=== PATIENT | female | born 1990 | race Caucasian/White ===

== ENCOUNTER → 2017-08-14 15:44 | Outpatient (CLI) | payer OTHER, MEDICAID, SELFPAY ==
--- NOTE | 2017-08-14 15:46 | DI.US.S_ITS ---
PROCEDURE: US OB <= 14 WEEKS FETUS INDICATIONS: Initial OB US/Dating scan OUTSIDE/PRIOR DATING DATA: Last menstrual period (LMP): 06/07/17. LMP-based estimated date of delivery (JOI): 03/14/18. First dating scan (date and location): 08/14/17. Estimated date of delivery (JOI) from first dating scan: 03/14/18. TECHNIQUE: Real-time scanning was performed of the fetus and maternal pelvic organs, with image documentation. Endovaginal scanning was also performed to better visualize the fetus and maternal ovaries. COMPARISON: None. FINDINGS: Embryo: [place]-rump length measured 2.9 cm corresponding to 9 weeks 5 days. Heart rate measures 173 beats per minute. Measurement variability in dating: +/- 4 weeks by LMP, +/- 7 days by mean sac diameter (use before 6 weeks gestation if crown-rump length not able to be measured), +/- 5 days by crown-rump length (up to 8 weeks 6 days gestation), +/- 7 days by crown-rump length (up to 13 weeks 6 days gestation). Maternal organs: Ovaries within normal limits. Limited images through the kidneys demonstrate no hydronephrosis. IMPRESSION: 9 week 5 day single living IUP. Dictated by: Dominick Barajas RRA Interpreted: Megha Baltazar MD on 08/14/2017 at 16:46 Approved by: Megha Baltazar MD, PhD on 08/14/2017 at 18:16
== END ==
PROVIDERS: PCP Family Medicine; Visit Provider Family Medicine
DX: Z34.91 Encounter for supervision of normal pregnancy, unspecified, first trimester (principal); Z3A.09 9 weeks gestation of pregnancy
CPT/HCPCS: 76801; 76817

== ENCOUNTER → 2017-09-13 12:13 | Outpatient (CLI) | payer OTHER, MEDICAID, SELFPAY ==
[2017-09-13 13:43] LABS: Add Manual Diff / Slide Review NO; Basophils Percent Auto 0.5 % (0-2); Eosinophils Percent Auto 1.5 % (2-4); Hematocrit 34.1 % (36-46); Hemoglobin 11.7 g/dL (12.0-16.0); Lymphocytes Percent Auto 24.1 % (25-40); Mean Corpuscular HGB Conc 34.2 % (30-36); Mean Corpuscular Hemoglobin 29.8 PG (26-34); Mean Corpuscular Volume 87.4 fL (80-100); Monocytes Percent Auto 5.3 % (3-14); Neutrophils Absolute Auto 5600 /uL (3000-5900); Neutrophils Percent Auto 68.6 % (50-75); Platelet Count 219 X10^3/uL (150-400); Red Blood Cell Count 3.91 X10^6/uL (4.0-5.2); Red Cell Distribution Width 12.9 % (11.6-14.8); White Blood Cell Count 8.2 X10^3/uL (4.5-11.0)
[2017-09-13 16:08] LABS: Hepatitis B Surface Antigen NEGATIVE s/c (NEGATIVE); Rubella Antibody IgG 82.6 IU/mL (>15)
[2017-09-13 16:23] LABS: HIV 1 and 2 Antibody NEGATIVE (NEGATIVE); Hep C Virus Ab w/Reflex Quant NEGATIVE s/c (NEGATIVE)
[2017-09-15 14:13] LABS: HSV 2 IGG AB < 0.90 index (< 0.90)
[2017-09-18 14:39] LABS: Varicella IgG Antibody < 135.00
[2017-09-21 13:44] LABS: Rapid Plasma Reagin NON-REACTIVE
== END ==
PROVIDERS: PCP Family Medicine; Visit Provider Family Medicine
DX: Z34.91 Encounter for supervision of normal pregnancy, unspecified, first trimester (principal)
CPT/HCPCS: 36415; 80055; 86695; 86696; 86703; 86787; 86803; 86850; 86900; 86901; 87086

== ENCOUNTER → 2017-10-10 16:54 | Outpatient (CLI) | payer OTHER, MEDICAID, SELFPAY ==
[2017-10-16 16:19] LABS: AFP, Serum 39.8 ng/mL; Calc Gestational Age 17.9; Cigarette Smoker N; Donated Egg NOT GIVEN; Donor Egg Age NOT GIVEN; Estriol, Free 1.05 ng/mL; Inhibin A, Dimeric 204 pg/mL; Maternal Weight 202 lbs; Number of Fetuses 1; Previous Pregnancy Down Syndro NOT GIVEN; hCG, MoM 1.14; hCG, Serum 23.8 IU/mL
== END ==
PROVIDERS: PCP Family Medicine; Visit Provider Family Medicine
DX: Z3A.16 16 weeks gestation of pregnancy (principal)
CPT/HCPCS: 36415; 82105; 82677; 84702; 86336

== ENCOUNTER → 2017-11-06 07:59 | Outpatient (CLI) | payer OTHER, MEDICAID, SELFPAY ==
--- NOTE | 2017-11-06 08:01 | DI.US.S_ITS ---
PROCEDURE: US OB >= 14 WEEKS FETUS INDICATIONS: ANATOMY SCAN OUTSIDE/PRIOR DATING DATA: Last menstrual period (LMP): 06/07/17. LMP-based estimated date of delivery (JOI): 03/14/18. First dating scan (date and location): 08/14/17. Estimated date of delivery (JOI) from first dating scan: 03/14/18.. TECHNIQUE: Real-time scanning was performed of the fetus, with image documentation and biometric measurements. Endovaginal scanning: Breech COMPARISON: [facility], OB <= 14 WEEKS FETUS, 08/14/2017, 15:56. FINDINGS: General: A single living intrauterine gestation is present. Presentation: Breech Placenta: Placental position is posterior, without previa. Amniotic fluid index: 17.1 cm, normal range is 5-24 cm. heart rate: 149 beats per minute. Maternal cervical canal: 4.2 cm long. biometrics: Biparietal diameter: 22 weeks 2 days Head circumference: 22 weeks 3 days Abdominal circumference: 22 weeks 1 day Femur length: 22 weeks 1 day Estimated gestational age from initial scan: 21 weeks 5 days Composite gestational age from present scan: 22 weeks 2 days Estimated weight and percentile: 481 g; 68th percentile Measurement variability for biometric dating: +/- 7 days from 14 weeks to 15 weeks 6 days gestation, +/- 10 days from 16 weeks to 21 weeks 6 days gestation, +/- 2 weeks from 22 weeks to 27 weeks 6 days gestation, +/- 3 weeks for 28 weeks gestation or later. weight reference: 4500 g or EFW >90/95% is considered macrosomia or large for gestational age. EFW <10% is small for gestational age. EFW 5% or less is considered intra-uterine growth restriction. Anatomic survey: Neuro: Ventricles are non-dilated at less than 10 mm. Cisterna magna is normal at 3-11 mm. Cerebellum is normal in size and morphology. Nuchal skin fold: Normal at less than 6 mm between 14-21 weeks gestational age. Face: Nose and lips are normal and facial profile not well-seen. Spine: No evidence for spina bifida. Heart: 4-chambered heart is present, with normal ventricular outflow tracts. Diaphragm: Diaphragm is intact. Stomach: Left-sided stomach is present. Kidneys: No hydronephrosis. Normal is less than 5 mm in 2nd trimester, less than 7 mm in 3rd trimester. Cord: 3-vessel cord has orthotopic insertion. Bladder: Normal in size. Extremities: All 4 extremities identified. IMPRESSION: 1. Normal interval growth. 2. facial profile not well seen otherwise normal anatomic survey Dictated by: Dominick Barajas [facility] Interpreted: Megha Baltazar MD on 11/06/2017 at 9:48 Approved by: Megha Baltazar MD, PhD on 11/06/2017 at 13:20
== END ==
PROVIDERS: Visit Provider Family Medicine
DX: Z34.92 Encounter for supervision of normal pregnancy, unspecified, second trimester (principal); Z3A.22 22 weeks gestation of pregnancy
CPT/HCPCS: 76811

== ENCOUNTER → 2017-12-03 13:15 | Outpatient (CLI) | payer OTHER, MEDICAID, SELFPAY ==
--- NOTE | 2017-12-03 13:16 | DI.US.S_ITS ---
PROCEDURE: US OB LIMITED INDICATIONS: PROFILE OUTSIDE/PRIOR DATING DATA: Last menstrual period (LMP): 06/07/17. LMP-based estimated date of delivery (JOI): 03/14/18. First dating scan (date and location): 08/14/17. Estimated date of delivery (JOI) from first dating scan: 03/14/18. TECHNIQUE: Real-time scanning was performed of the fetus, with image documentation. Endovaginal scanning: No COMPARISON: [facility], OB <= 14 WEEKS FETUS, 08/14/2017, 15:56. [facility], OB >= 14 WEEKS FETUS, 11/06/2017, 8:03. FINDINGS: A single living intrauterine gestation is present. Presentation: Vertex. Placenta: Placental position is posterior, without previa. Amniotic fluid index: 16.8 cm, normal range is 5-24 cm. heart rate: 168 beats per minute. Maternal cervical canal: 4.0 cm long. Estimated gestational age from initial scan: 25 weeks 4 days. Normal appearance of the facial profile. IMPRESSION: Single living IUP redemonstrated and normal facial profile. Dictated by: Dominick Barajas [facility] Interpreted: Megha Baltazar MD on 12/03/2017 at 15:35 Approved by: Megha Baltazar MD, PhD on 12/03/2017 at 15:42
== END ==
PROVIDERS: Visit Provider Family Medicine
DX: Z36.86 Encounter for antenatal screening for cervical length (principal); Z3A.23 23 weeks gestation of pregnancy
CPT/HCPCS: 76815

== ENCOUNTER → 2018-02-15 14:31 | Outpatient (CLI) | payer OTHER, MEDICAID, SELFPAY ==
[2018-02-15 16:04] LABS: Hematocrit 31.5 % (36-46); Hemoglobin 10.5 g/dL (12.0-16.0)
[2018-02-15 17:15] LABS: GTT (PREG) 1 Hour PP 50gm Dose 129 mg/dL (76-139)
== END ==
PROVIDERS: PCP Family Medicine; Visit Provider Family Medicine
DX: Z34.93 Encounter for supervision of normal pregnancy, unspecified, third trimester (principal); Z3A.28 28 weeks gestation of pregnancy
CPT/HCPCS: 36415; 82950; 85014; 85018

== ENCOUNTER → 2018-02-18 13:23 | Outpatient (CLI) | payer OTHER, MEDICAID, SELFPAY ==
[2018-02-19 12:58] LABS: Strep Grp B PCR NEG for Grp B Strep
== END ==
PROVIDERS: PCP Family Medicine; Visit Provider Family Medicine
DX: Z34.93 Encounter for supervision of normal pregnancy, unspecified, third trimester (principal); Z3A.36 36 weeks gestation of pregnancy
CPT/HCPCS: 87653

== ENCOUNTER 2018-02-20 07:08 | Outpatient (CLI) | payer OTHER, MEDICAID, SELFPAY ==
--- NOTE | 2018-02-20 08:03 | PM.OBTRLD ---
Visit Information Visit Information Date of evaluation: 02/20/18 Primary OB Provider: Caroline Noble On-call OB Provider: Savanah Sierra Reason for Evaluation: Yes other Comments/Additional reasons for admission: Patient was brought in for 37 weeks breech presentation for version attempt. Ultrasound performed showed the baby was vertex presentation. [facility] Social History marital status: unmarried,living together number of children: 2 occupational status: employed Smoking Status: Never smoker alcohol intake: never substance use type: does not use Evaluation Evaluation Baseline heart rate: 130 Variability: Moderate (11-25) monitor accelerations: Present monitor decelerations: Absent Diagnosis, Plan/Disposition Final Diagnosis (1) Breech presentation: Current Visit: Yes Status: Acute (2) 36 to 37 weeks gestation of : Current Visit: Yes Status: Acute Plan/Disposition Plan: Patient at 36 and 6/ 7th weeks by dates who had been breech presentation arrived for version but was found to be vertex presentation. She was sent home to follow up at her routine OB appointment
--- NOTE | 2018-02-20 08:06 | P.TNLD_ITS ---
Visit Information Visit Information Date of evaluation: 02/20/18 Primary OB Provider: Caroline Noble On-call OB Provider: Savanah Sierra Reason for Evaluation: Yes other Comments/Additional reasons for admission: Patient was brought in for 37 weeks breech presentation for version attempt. Ultrasound performed showed the baby was vertex presentation. [facility] Social History marital status: unmarried,living together number of children: 2 occupational status: employed Smoking Status: Never smoker alcohol intake: never substance use type: does not use Evaluation Evaluation Baseline heart rate: 130 Variability: Moderate (11-25) monitor accelerations: Present monitor decelerations: Absent Diagnosis, Plan/Disposition Final Diagnosis (1) Breech presentation: Current Visit: Yes Status: Acute (2) 36 to 37 weeks gestation of : Current Visit: Yes Status: Acute Plan/Disposition Plan: Patient at 36 and 6/ 7th weeks by dates who had been breech presentation arrived for version but was found to be vertex presentation. She was sent home to follow up at her routine OB appointment
== END 2018-02-20 07:52 | disposition home or self-care (01) ==
LOC: LABOR 07:46 → OB 12:44
PROVIDERS: PCP Family Medicine; Visit Provider Specialist
DX: O32.1XX0 Maternal care for breech presentation, not applicable or unspecified (principal); Z3A.37 37 weeks gestation of pregnancy
CPT/HCPCS: 59025; 59050; 76815; G0378; G0379

== ENCOUNTER 2018-03-19 18:06 | Inpatient (IN) | payer OTHER, MEDICAID, SELFPAY ==
[2018-03-19 19:08] LABS: Add Manual Diff / Slide Review NO; Basophils Absolute Auto 100 /uL (0-100); Basophils Percent Auto 0.5 % (0-2); Eosinophils Absolute Auto 0 /uL (0-450); Eosinophils Percent Auto 0.2 % (2-4); Hematocrit 34.7 % (36-46); Hemoglobin 11.4 g/dL (12.0-16.0); Lymphocytes Absolute Auto 2300 /uL (1100-4500); Lymphocytes Percent Auto 18.7 % (25-40); Mean Corpuscular HGB Conc 32.9 % (30-36); Mean Corpuscular Hemoglobin 27.9 PG (26-34); Monocytes Absolute Auto 700 /uL (0-900); Monocytes Percent Auto 5.5 % (3-14); Neutrophils Absolute Auto 9300 /uL (1500-7000); Neutrophils Percent Auto 75.1 % (50-75); Platelet Count 269 X10^3/uL (150-400); Red Blood Cell Count 4.08 X10^6/uL (4.0-5.2); Red Cell Distribution Width 15.4 % (11.6-14.8); White Blood Cell Count 12.4 X10^3/uL (4.5-11.0)
[2018-03-19] MEDS: ACETAMINOPHEN 325 MG TABLET 650 MG PO (21:02)
[2018-03-19 21:04] VITALS: BP 131/80
[2018-03-20] MEDS: ZOLPIDEM 5 MG TABLET PO ×2 (01:42→22:41)
[2018-03-20] MEDS: ACETAMINOPHEN 325 MG TABLET 650 MG PO ×4 (01:42→22:40)
--- NOTE | 2018-03-20 08:31 | P.HPOB_ITS ---
OB HPI Date/Time Date of admission: 03/20/18 Date Patient Seen: 03/20/18 Time Patient Seen: 08:00 History of Present Condition Chief complaint: PRENANCY : 4 Para: 2 Estimated Date of Delivery: 03/14/18 Estimated Gestational Age (weeks): 40w6d Narrative: Amparo Phan is a 27 year old at 40+6 weeks gestation here for postdates induction. She arrived last night however induction was delayed. Cytotec given at 4:50 AM. RN concerned about position afer placing Cytotec. Bedside US this morning demonstrated transverse lie with the spine down and head on the right. Indications Indication for induction OB: post dates History of Present care: good care, initiated at week # (10), number of visits (13) and pounds weight gain (28) Dating criteria: LMP confirmed by 1st trimester US Ultrasounds: normal mid trimester US Obstetrical complications: none Medical complications: none Preadmission Labs Blood type: O (+) positive -: Antibody screen: negative, GBS status: negative, HBsAG: negative, HIV: negative, HSV 1: positive, HSV 2: negative and RPR/VDLR: negative -: Chlamydia screen: not detected and Gonorrhea screen: not detected -: Rubella: immune and Varicella: not immune HCAB: negative PAP: Abnormal Quad screen: Normal 1 hr GTT: 129 Prior (ies) History: 04/12/2012 16 weeks D&E +Down Syndrome 09/08/14 41 weeks female 7.10 lbs, thick meconium 06/20/16 40 weeks 8.15 male, thick meconium, nuchal cord Evaluation Evaluation Baseline heart rate: 130 Variability: Moderate (11-25) monitor accelerations: Present monitor decelerations: Absent Uterine Contraction Intensity: Mild Category of Tracing: I Cervical dilation (cm): 1 Cervical effacement (%): 25 station: -4 Laboratory results: Laboratory Tests 03/19/18 03/19/18 18:50 18:50 WBC 12.4 H RBC 4.08 Hgb 11.4 L Hct 34.7 L MCV 85.0 MCH 27.9 MCHC 32.9 RDW 15.4 H Plt Count 269 Neut % (Auto) 75.1 H Lymph % (Auto) 18.7 L [place] % (Auto) 5.5 Eos % (Auto) 0.2 L Baso % (Auto) 0.5 Neut # (Auto) 9300 H Lymph # (Auto) 2300 [place] # (Auto) 700 Eos # (Auto) 0 Baso # (Auto) 100 Blood Type O Positive Antibody Screen Negative [facility] Medical History Vaginal delivery (Resolved) Surgical History History of colposcopy (Resolved ~2015) History of elective Social History marital status: unmarried,living together number of children: 2 occupational status: employed Smoking Status: Never smoker alcohol intake: never substance use type: does not use Social History marital status: unmarried,living together number of children: 2 occupational status: employed Smoking Status: Never smoker alcohol intake: never substance use type: does not use Meds Home Medications Medication Instructions Recorded Confirmed Type docusate sodium [Colace] 100 mg PO QDAY #30 cap 08/01/16 03/20/18 Rx vitamin-ferrous fumarate 1 cap PO QDAY #90 cap 08/07/17 03/20/18 Rx 65 mg iron-folic acid 1 mg capsule ondansetron HCl 4 mg tablet 4 mg PO Q6H PRN #30 tab 09/05/17 Rx ranitidine 150 mg tablet 150 mg PO BID #60 tab 01/25/18 03/20/18 Rx Allergies Allergy/AdvReac Type Severity Reaction Status Date / Time No Known Allergies Allergy Unknown Unverified 05/23/17 13:04 [NO KNOWN ALLERGIES] Review of Systems Constitutional Constitutional: Denies fever(s) and Reports headache(s) ENT Ears, Nose, Mouth, and Throat: Yes headache(s) Gastrointestinal Gastrointestinal: Denies abdominal pain Neurologic Neurologic: Reports headache(s) and Denies other visual disturbances Exam Const General: healthy appearing and comfortable HENIL Head: normal to inspection Nose: external nose normal Mouth: oral mucosae normal Teeth and gingiva: dentition normal Eyes General: appearance normal, both eyes and all related structures Neck Neck: normal visual inspection Resp Auscultation: clear to auscultation bilaterally and no wheezes Cardio Rate: regular rate Rhythm: regular rhythm Heart Sounds: S1 normal and S2 normal Manual OB Exam: dilated 1, effaced 25% and station high Uterus Location (Fundal Height): 40 Presentation: transverse/shoulder Estimated Weight (lbs): 8 Neuro General: alert, awake, oriented x3 and no focal motor deficits Extrem General: no pedal edema Objective Labs Result Diagrams: 03/19/18 18:50 03/20/18 10:46 Labs: Laboratory Results - last 24 hr 03/19/18 03/19/18 18:50 18:50 WBC 12.4 H RBC 4.08 Hgb 11.4 L Hct 34.7 L MCV 85.0 MCH 27.9 MCHC 32.9 RDW 15.4 H Plt Count 269 Neut % (Auto) 75.1 H Lymph % (Auto) 18.7 L [place] % (Auto) 5.5 Eos % (Auto) 0.2 L Baso % (Auto) 0.5 Neut # (Auto) 9300 H Lymph # (Auto) 2300 [place] # (Auto) 700 Eos # (Auto) 0 Baso # (Auto) 100 Blood Type O Positive Antibody Screen Negative Assessment and Plan (1) 40 weeks gestation of : Current visit: Yes Status: Acute (2) Transverse lie of fetus: Current visit: Yes Status: Acute 27-year-old at 40 and 6 weeks of gestation here for induction. position this morning was transverse, previously vertex 2 days ago. Discussed with Dr. Major. Version was attempted however unsuccessful. Patient feels very strongly against if at all possible. Will attempt a version again later today. She has also had a headache overnight and a couple elevated blood pressures this morning. Will check preeclampsia labs. Platelets on admission were normal.
[2018-03-20 11:12] LABS: Alanine Aminotransferase 21 IU/L (9-52); Albumin 3.9 g/dL (3.5-5.0); Albumin Globulin Ratio 1.1 (1.0-2.8); Alkaline Phosphatase 209 U/L (38-126); Aspartate Aminotransferase 26 IU/L (14-36); BUN Creatinine Ratio 16.7 (6-22); Bilirubin Total 0.3 mg/dL (0.2-1.3); Blood Urea Nitrogen 10 mg/dL (7-17); Calcium 9.4 mg/dL (8.4-10.2); Carbon Dioxide 24 mmol/L (22-32); Chloride 101 mmol/L (98-107); Estimated Glomerular Filt Rate > 60.0 mL/min (>60); Globulin 3.5 g/dL (1.7-4.1); Glucose 103 mg/dL (70-100); HEMOLYSIS < 15 (0-50); Potassium 4.1 mmol/L (3.4-5.1); Sodium 135 mmol/L (137-145); Total Protein 7.4 g/dL (6.3-8.2)
[2018-03-20] MEDS: TERBUTALINE 1 MG/ML VIAL 0.25 MG SUBCUT (13:07)
--- NOTE | 2018-03-20 13:25 | PM.PROC.1 ---
Procedures Date/Time Date of procedure: 03/20/18 Time of procedure: 13:25 General Procedure description: External cephalic version. Patient is a 4 para 2 EDC 03/14/2018 at 40 and 6/7 weeks by dates. She had been breech presentation at 36-37 weeks she was scheduled for a version at that time but came in vertex presentation. Patient was stable vertex position and was brought in for postdates induction. She received 1 dose of Cytotec and then it was discovered that she was transverse lie. Attempt to turn the baby by Dr. Major was unsuccessful. Patient was not given terbutaline at that time. Patient is requesting repeat attempt at version rather than proceeding with section. Baby position was documented by ultrasound. Head in the right upper quadrant and back down with no presenting part in the pelvis. Good fluid. heart tones were category 1. Patient was given 0.25 mg of subcu terbutaline. With 1 attempt the infant was changed to vertex presentation. heart tones reassuring after the procedure. She will be monitored for 1 hr for evidence of complications from version. Will proceed with the induction at that point. Complications: none
[2018-03-20] MEDS: miSOPROStol 25 MCG TABLET VAG ×2 (14:57→18:58)
[2018-03-20 16:26] LABS: Protein (Total) Urine Random 7 mg/dL (0-12); Protein Creatinine Ratio Urine 0.08 GRAM/24H
--- NOTE | 2018-03-20 17:26 | PM.OBPNLAB ---
Date/Time Date Patient Seen: 03/20/18 Time Patient Seen: 17:00 Pain Control Pain control: tolerating well Pelvic Exam Dilation (cm): 1 Effacement (%): 50 station: -3 Amniotic membrane status: Intact Contractions Monitor mode: External Contraction frequency (min): 5 Contraction pattern: Regular Contraction intensity: Moderate Status status: Category l Heart Rate Baseline: 150 Monitor Accelerations: Present Monitor Decelerations: Absent Monitor Variability: Moderate Assessment and Plan Assessment: induction ongoing Comments: First version was unsuccessful though second version successfully turned baby to vertex. Cytotec given at 3 PM. Will plan for two more doses of Cytotec per protocol. If patient is not yet in active labor will let her rest after the third Cytotec and start pitocin at 6 AM.
[2018-03-21] MEDS: fentaNYL 100 MCG/2 ML INJ 50 MCG IV ×2 (03:10→03:48)
[2018-03-21] MEDS: LACTATED RINGERS 1,000 ML 100 ML IV (08:53)
--- NOTE | 2018-03-21 09:06 | PM.OBPNLAB ---
Date/Time Date Patient Seen: 03/21/18 Time Patient Seen: 07:00 Pain Control Pain control: tolerating well and epidural Comments: Patient progressed spontaneously after Cytotec at 7:00 p.m. last night. Received an epidural and was 4 cm at 530 a.m. today. This morning she has no complaints. Pelvic Exam Dilation (cm): 6 Effacement (%): 100 station: -3 Amniotic membrane status: Ruptured Comments: Thin meconium Contractions Monitor mode: External Contraction frequency (min): 3 Contraction pattern: Regular Contraction intensity: Strong/Firm Status status: Category ll Heart Rate Baseline: 140 Monitor Accelerations: Present Monitor Decelerations: Variable (Intermittent) Monitor Variability: Moderate Assessment and Plan Assessment: active labor Plan: continuous present management Comments: Patient in active labor making good progress. Rupture of membranes occurred during vaginal exam with thin meconium. Patient comfortable with epidural. Continue expectant management. Anticipate .
--- NOTE | 2018-03-21 10:10 | PM.OBPRVD ---
Events: Meconium Stained Fluid Delivery date: 03/21/18 Intrapartal events: Abnormal Presentation (transverse lie with successful version 03/20/18) Cervical ripening method: per misoprostal protocol Delivery monitor: external FHT Route of delivery: L&D Laceration Description: None Estimated blood loss (mL): 200 Anesthesia type: Epidural Narrative: VAGINAL DELIVERY NOTE Patient is a 27-year-old [id number] at 41 weeks gestation who gave on 03/21/2018 at 09:43. JOI: 03/14/2018 Hospital problems: 41 weeks of Transverse lie External cephalic version Epidural analgesia STAGE I: Labor After external cephalic version on 03/20/18 patient received Cytotec for cervical ripening. After her second dose she developed a regular contraction pattern and did not require further ripening. Active labor began at 04:03 on 03/21/18. She received an epidural for pain control. Spontaneous rupture of membranes occurred at 07:04 with thin meconium. She was complete at 09:23. Stage I duration 5 hr and 20 min. heart tones were category 2 due to intermittent variable decelerations. STAGE II: Delivery Second stage of labor lasted 20 min. Spontaneous vaginal delivery occurred at 9:43 a.m.. was vertex and LAMAR. was placed on mother's abdomen. Cord was clamped and cut after 1 min delay. Apgars were 8 and 9. No resuscitation of the required beyond drying and stimulating. STAGE III: Placenta/Cord Placenta delivered after active management at 09:50 with a 3 vessel cord and intact. IM Pitocin given after delivery of placenta. The vagina was inspected and there were no lacerations. Fundus firm at umbilicus after delivery. Hemostasis achieved. EBL: 200 mL. Needle and sponge counts were correct. The vagina was inspected and no items were left in situ. Patient was doing well with Yazmin Reed , her and boyfriend at bedside. [place] Baby 1: gender: Female Presentation: vertex cord vessel description: 3 Vessels score (1 min): 9 score (5 min): 9
[2018-03-21 12:30] LABS: Add Manual Diff / Slide Review NO; Basophils Absolute Auto 100 /uL (0-100); Basophils Percent Auto 0.4 % (0-2); Eosinophils Absolute Auto 0 /uL (0-450); Eosinophils Percent Auto 0.1 % (2-4); Hematocrit 35.7 % (36-46); Hemoglobin 11.6 g/dL (12.0-16.0); Lymphocytes Absolute Auto 2100 /uL (1100-4500); Lymphocytes Percent Auto 13.5 % (25-40); Mean Corpuscular HGB Conc 32.3 % (30-36); Mean Corpuscular Hemoglobin 27.6 PG (26-34); Mean Corpuscular Volume 85.4 fL (80-100); Monocytes Absolute Auto 1100 /uL (0-900); Neutrophils Absolute Auto 12000 /uL (1500-7000); Platelet Count 284 X10^3/uL (150-400); Red Blood Cell Count 4.19 X10^6/uL (4.0-5.2); Red Cell Distribution Width 15.8 % (11.6-14.8); White Blood Cell Count 15.2 X10^3/uL (4.5-11.0)
[2018-03-21 12:42] LABS: Alanine Aminotransferase 21 IU/L (9-52); Albumin 3.4 g/dL (3.5-5.0); Albumin Globulin Ratio 1.1 (1.0-2.8); Alkaline Phosphatase 191 U/L (38-126); Aspartate Aminotransferase 25 IU/L (14-36); BUN Creatinine Ratio 16.7 (6-22); Bilirubin Total 0.3 mg/dL (0.2-1.3); Blood Urea Nitrogen 10 mg/dL (7-17); Calcium 9.2 mg/dL (8.4-10.2); Carbon Dioxide 21 mmol/L (22-32); Chloride 103 mmol/L (98-107); Estimated Glomerular Filt Rate > 60.0 mL/min (>60); Glucose 99 mg/dL (70-100); HEMOLYSIS < 15 (0-50); Potassium 4.1 mmol/L (3.4-5.1); Sodium 135 mmol/L (137-145); Total Protein 6.4 g/dL (6.3-8.2)
[2018-03-21] MEDS: IBUPROFEN 600 MG TABLET PO ×2 (13:18→20:23)
[2018-03-21] MEDS: OXYCODONE/ACETAMINOPHEN 5/325 TABLET 1 TAB PO ×2 (15:52→20:23)
[2018-03-22] MEDS: IBUPROFEN 600 MG TABLET PO ×4 (02:35→23:42)
[2018-03-22] MEDS: OXYCODONE/ACETAMINOPHEN 5/325 TABLET 1 TAB PO ×6 (04:43→20:58)
[2018-03-22 08:35] LABS: Add Manual Diff / Slide Review NO; Basophils Absolute Auto 100 /uL (0-100); Eosinophils Absolute Auto 100 /uL (0-450); Eosinophils Percent Auto 1.4 % (2-4); Hematocrit 32.7 % (36-46); Hemoglobin 10.9 g/dL (12.0-16.0); Lymphocytes Absolute Auto 2700 /uL (1100-4500); Lymphocytes Percent Auto 32.7 % (25-40); Mean Corpuscular HGB Conc 33.4 % (30-36); Mean Corpuscular Hemoglobin 28.4 PG (26-34); Mean Corpuscular Volume 85.1 fL (80-100); Monocytes Absolute Auto 500 /uL (0-900); Monocytes Percent Auto 6.3 % (3-14); Neutrophils Absolute Auto 4800 /uL (1500-7000); Neutrophils Percent Auto 58.6 % (50-75); Platelet Count 222 X10^3/uL (150-400); Red Blood Cell Count 3.84 X10^6/uL (4.0-5.2); White Blood Cell Count 8.2 X10^3/uL (4.5-11.0)
[2018-03-22] MEDS: LABETALOL 100 MG TABLET PO ×3 (08:40→20:58)
[2018-03-22] MEDS: DOCUSATE 100 MG CAPSULE PO ×2 (08:41→08:53)
[2018-03-22 08:51] LABS: Alanine Aminotransferase 24 IU/L (9-52); Albumin Globulin Ratio 1.1 (1.0-2.8); Alkaline Phosphatase 151 U/L (38-126); Aspartate Aminotransferase 27 IU/L (14-36); Bilirubin Total 0.2 mg/dL (0.2-1.3); Blood Urea Nitrogen 14 mg/dL (7-17); Calcium 8.5 mg/dL (8.4-10.2); Carbon Dioxide 24 mmol/L (22-32); Chloride 103 mmol/L (98-107); Estimated Glomerular Filt Rate > 60.0 mL/min (>60); Globulin 2.8 g/dL (1.7-4.1); Glucose 72 mg/dL (70-100); HEMOLYSIS < 15 (0-50); Potassium 4.4 mmol/L (3.4-5.1); Sodium 134 mmol/L (137-145); Total Protein 5.8 g/dL (6.3-8.2)
[2018-03-22 08:53] VITALS: BP 153/105; PULSE 63
[2018-03-22 09:59] LABS: Creatinine Urine Random 62.4 mg/dL; Protein (Total) Urine Random 26 mg/dL (0-12); Protein Creatinine Ratio Urine 0.41 GRAM/24H
--- NOTE | 2018-03-22 13:50 | P.PNOB_ITS ---
Subjective - OB Interval history: Blood pressure was persistently elevated overnight, 140s to 150s over 90s to 100s. Patient denies headache, vision changes, right upper quadrant pain or swelling. She feels well and is eager to go home. Bleeding is light. Pain is well controlled. She is eating, ambulating and voiding without difficulty. going well. Patient comments: no complaints, pain well controlled, tolerating diet and flatus present [place] baby status: doing well feeding status: exclusively breast feeding Date Patient Seen: 03/22/18 Time Patient Seen: 12:10 Exam Vital Signs (past 8 hours): - 03/22/18 08:53 Pulse Rate 63 Blood Pressure 153/105 H Narrative Exam Narrative: General: Awake and alert, no acute distress. HEENT: NCAT, EOMI, moist oral mucosa CV: Regular rate and rhythm, no murmurs, rubs or gallops Lungs: CTAB, no wheezes, rales, or rhonchi Abdomen: Soft, nontender; bowel tones active; uterus firm 1 cm below umbilicus Extremities: Warm, no edema, 2+ pedal pulses bilaterally Neuro: AAO x3. 2/4 bilateral patellar reflexes. No clonus. Objective Labs Result Diagrams: 03/22/18 08:25 03/22/18 08:25 Labs: Laboratory Results - last 24 hr 03/22/18 03/22/18 03/22/18 08:25 08:25 09:00 WBC 8.2 RBC 3.84 L Hgb 10.9 L Hct 32.7 L MCV 85.1 MCH 28.4 MCHC 33.4 RDW 16.0 H Plt Count 222 Neut % (Auto) 58.6 D Lymph % (Auto) 32.7 [place] % (Auto) 6.3 Eos % (Auto) 1.4 L Baso % (Auto) 1.0 Neut # (Auto) 4800 Lymph # (Auto) 2700 [place] # (Auto) 500 Eos # (Auto) 100 Baso # (Auto) 100 Sodium 134 L Potassium 4.4 Chloride 103 Carbon Dioxide 24 BUN 14 Creatinine 0.70 Estimated GFR > 60.0 BUN/Creatinine Ratio 20.0 Glucose 72 Calcium 8.5 Total Bilirubin 0.2 AST 27 ALT 24 Alkaline Phosphatase 151 H Total Protein 5.8 L Albumin 3.0 L Globulin 2.8 Albumin/Globulin Ratio 1.1 U Random Total Protein 26 H Urine Creatinine 62.4 Protein/Creatinin Ratio 0.41 Assessment & Plan (1) 40 weeks gestation of : Status: Acute Current Visit: Yes (2) Transverse lie of fetus: Status: Deleted Current Visit: Yes (3) Spontaneous vaginal delivery: Status: Acute Current Visit: Yes (4) Pre-eclampsia, : Status: Acute Current Visit: Yes Plan day: 1 Comments: The 27-year-old day 1 after spontaneous vaginal delivery. Blood pressures have been persistently elevated since delivery. Urine protein creatinine ratio elevated today at 0.4. AST, ALT and platelets all normal. Patient is completely asymptomatic. No severe symptoms, no indication for magnesium at this time. Discussed new diagnosis of preeclampsia with patient. Will start labetalol for blood pressure control. Will keep patient another night to monitor for symptoms and repeat labs in the morning. She understands and is agreement with plan. Continue routine care. Time Spent With Patient Total time spent is greater than 50% in coordination of care (as documented) at patient's floor/unit and/or counseling patient: 15-24 minutes
[2018-03-22 20:58] VITALS: BP 144/84
[2018-03-23] MEDS: OXYCODONE/ACETAMINOPHEN 5/325 TABLET 1 TAB PO ×3 (01:07→09:21)
[2018-03-23] MEDS: IBUPROFEN 600 MG TABLET PO (05:12)
[2018-03-23 08:45] LABS: Add Manual Diff / Slide Review NO; Basophils Absolute Auto 100 /uL (0-100); Basophils Percent Auto 0.7 % (0-2); Eosinophils Absolute Auto 200 /uL (0-450); Eosinophils Percent Auto 2.1 % (2-4); Hematocrit 34.4 % (36-46); Hemoglobin 11.4 g/dL (12.0-16.0); Lymphocytes Absolute Auto 2800 /uL (1100-4500); Lymphocytes Percent Auto 36.8 % (25-40); Mean Corpuscular Hemoglobin 28.5 PG (26-34); Mean Corpuscular Volume 86.3 fL (80-100); Monocytes Absolute Auto 400 /uL (0-900); Monocytes Percent Auto 5.9 % (3-14); Neutrophils Absolute Auto 4100 /uL (1500-7000); Neutrophils Percent Auto 54.5 % (50-75); Platelet Count 234 X10^3/uL (150-400); Red Blood Cell Count 3.99 X10^6/uL (4.0-5.2); White Blood Cell Count 7.5 X10^3/uL (4.5-11.0)
--- NOTE | 2018-03-23 09:00 | P.DS_ITS ---
Discharge Providers Date of admission: 03/19/18 18:06 Primary care physician: Caroline Noble DO Consults: 03/21/18 10:48 Consult to Operations Examiner Routine Comment: Discharge provider: Caroline Noble DO Discharge Date: 03/23/18 Summary Date Patient Seen: 03/23/18 Time Patient Seen: 08:58 Hospital Course: Patient is a 27-year-old now 3 2 days after spontaneous vaginal delivery on 03/21/18. She was brought in for post-dates induction. On admission infant was found to be transverse. Version was attempted by Dr. Major however unsuccessful. Patient felt very strongly about avoiding a and requested a second attempt. Second attempt with Dr. Sierra was successful. Induction proceeded with misoprostol. Patient progressed spontaneously after 2 doses of misoprostol and delivered a healthy female . There were no lacerations after delivery. On admission blood pressure was mildly elevated and pr-eeclampsia labs were normal. She was asymptomatic at that time. patient had persistently elevated blood pressures so labs were repeated which returned significant for an elevated protein creatinine ratio 0.4. Hypertension was treated with labetalol with improvement in blood pressures. She remained asymptomatic throughout her hospitalization and denied headaches, vision changes, right upper quadrant pain or edema. Repeat labs the day of discharge were reassuring. Patient will be discharged on labetalol with instructions to check her blood pressure at home. She was counseled extensively regarding symptoms of preeclampsia and will call or return to the hospital if symptoms develop. She will follow up in clinic in 2 days for a blood pressure check. Exam Temperature 98.3? blood pressure 118/71 heart rate 70 respirations 20 General: Awake and alert, no acute distress. HEENT: NCAT, EOMI, moist oral mucosa CV: Regular rate and rhythm, no murmurs, rubs or gallops Lungs: CTAB, no wheezes, rales, or rhonchi Abdomen: Soft, nontender; bowel tones active; uterus firm 1 cm below umbilicus Extremities: Warm, no edema, 2+ pedal pulses bilaterally Neuro: 2/4 bilateral patella reflexes Peripartum Data Delivery Method: Natural Vaginal Laceration description: None complications: other (Preeclampsia) 1: Gender: Female Disposition of : home Discharge Diagnosis (1) 40 weeks gestation of : Status: Acute (2) Transverse lie of fetus: Status: Deleted (3) Spontaneous vaginal delivery: Status: Acute (4) Pre-eclampsia, : Status: Acute Status at Discharge Functional status at discharge: independent ambulation Overall status at discharge: patient is progressing back to baseline Time Spent with Patient Total time spent providing and/or coordinating discharge services: Less than 30 minutes Objective Labs Result Diagrams: 03/23/18 07:00 03/23/18 07:00 Labs: Laboratory Results - last 24 hr 03/22/18 09:00 U Random Total Protein 26 H Urine Creatinine 62.4 Protein/Creatinin Ratio 0.41 Discharge Plan Discharge Plan Patient Disposition: Home Discharge comment: Patient instructed to call for fevers, bleeding through more than a pad an hour or severe pain. She was also counseled to call for this headaches, vision changes, right upper quadrant pain or severe swelling. Discharge Med Rec/Prescriptions Prescriptions: New oxycodone-acetaminophen 5-325 mg Tablet 1 tab PO Q4HR PRN (Reason: pain) Qty: 10 RF: 0 ibuprofen 600 mg Tablet 600 mg PO Q6HR PRN (Reason: Pain, Mild (1-3)) Qty: 30 RF: 0 labetalol 100 mg Tablet 100 mg PO BID Qty: 60 RF: 0 Continued vit-iron fum-folic ac [Mynatal] 65 mg iron- 1 mg capsule 1 cap PO QDAY Qty: 90 RF: 3 ranitidine HCl 150 mg tablet 150 mg PO BID Qty: 60 RF: 2 docusate sodium [Colace] 100 MG capsule 100 mg PO QDAY Qty: 30 RF: 3 Follow up/Referrals: Caroline Noble DO [Primary Care Provider] - 03/25/18 9:00 am Discharge Data Primary Care Provider: Caroline Noble Attending Provider: Caroline Noble Admit Date/Time: 03/19/18 18:06
[2018-03-23 09:03] LABS: Alanine Aminotransferase 27 IU/L (9-52); Albumin 3.2 g/dL (3.5-5.0); Albumin Globulin Ratio 1.1 (1.0-2.8); Alkaline Phosphatase 138 U/L (38-126); Aspartate Aminotransferase 26 IU/L (14-36); BUN Creatinine Ratio 17.1 (6-22); Bilirubin Total 0.1 mg/dL (0.2-1.3); Blood Urea Nitrogen 12 mg/dL (7-17); Calcium 8.7 mg/dL (8.4-10.2); Carbon Dioxide 26 mmol/L (22-32); Chloride 104 mmol/L (98-107); Estimated Glomerular Filt Rate > 60.0 mL/min (>60); Globulin 2.9 g/dL (1.7-4.1); Glucose 75 mg/dL (70-100); HEMOLYSIS < 15 (0-50); Potassium 4.6 mmol/L (3.4-5.1); Sodium 137 mmol/L (137-145); Total Protein 6.1 g/dL (6.3-8.2)
[2018-03-23 09:20] VITALS: BP 454/98; PULSE 66
[2018-03-23] MEDS: LABETALOL 100 MG TABLET PO (09:20)
[2018-03-23 10:10] VITALS: BP 454/98; PULSE 66; RESP 16; TEMP 36.6
[2018-03-23 10:41] VITALS: BP 119/77; PULSE 66; RESP 16; TEMP 36.6
== END 2018-03-23 10:47 | disposition home or self-care (01) | DRG 560 ==
PROVIDERS: Admitting Provider Family Medicine; PCP Family Medicine; Visit Provider Family Medicine
DX: O48.0 Post-term pregnancy (principal); O32.2XX0 Maternal care for transverse and oblique lie, not applicable or unspecified; Z3A.40 40 weeks gestation of pregnancy; Z37.0 Single live birth; O77.0 Labor and delivery complicated by meconium in amniotic fluid; O14.95 Unspecified pre-eclampsia, complicating the puerperium
CPT/HCPCS: 01967; 36415; 59050; 59200; 59409; 59412; 76815; 80053; 82570; 84156; 85025; 86850; 86900; 86901; G0379; J3010

== ENCOUNTER → 2018-04-08 15:39 | Outpatient (CLI) | payer OTHER, MEDICAID, SELFPAY | PROVIDERS: PCP Family Medicine; Visit Provider Family Medicine | DX: R30.0 Dysuria (principal) | CPT/HCPCS: 87077; 87086 ==

== ENCOUNTER → 2019-07-15 14:40 | Outpatient (CLI) | payer OTHER, MEDICAID, SELFPAY ==
[2019-07-15 15:51] LABS: Appearance Urine UA CLOUDY; Bilirubin Urine UA NEGATIVE (NEGATIVE); Color Urine UA YELLOW; Glucose Urine UA NEGATIVE (Negative); Ketones Urine UA NEGATIVE (NEGATIVE); Leukocyte Esterase Urine UA 2+ (NEGATIVE); Nitrite Urine UA POSITIVE (Negative); Occult Blood Urine UA 3+ (Negative); Protein Urine UA 2+ (Negative); Urobilinogen Urine UA 0.2 E.U./dL (0.2)
[2019-07-15 16:06] LABS: Bacteria Urine Many (>30); Culture Indicated Urine Specimen Cultured; RBC Urine 5-10/HPF (0-5/HPF); WBC Urine >100/HPF (0-5/HPF)
[2019-07-15 17:02] LABS: Urine N gonorrhoeae NOT DETECTED
[2019-07-15 17:12] LABS: Urine Chlamydia NOT DETECTED
== END ==
PROVIDERS: PCP Family Medicine; Referring Provider Family Medicine; Visit Provider Family Medicine
DX: Z72.51 High risk heterosexual behavior (principal); R30.0 Dysuria; R35.0 Frequency of micturition; R39.15 Urgency of urination
CPT/HCPCS: 81001; 87077; 87086; 87186; 87491; 87591

== ENCOUNTER 2020-12-16 14:20 | Emergency (ER) | payer OTHER, MEDICAID, SELFPAY ==
[2020-12-16 14:29] VITALS: BP 167/92; PULSE 95; RESP 16; TEMP 36.8; O2SAT 99; BMI 31.7
--- NOTE | 2020-12-16 14:48 | ED.GENADULT ---
HPI - General Adult General Chief complaint: Urogenital-Female Stated complaint: Menstrual cycle for months at a time, cramping Time Seen by Provider: 12/16/20 14:35 Source: patient Mode of arrival: Ambulatory Limitations: no limitations History of Present Illness HPI narrative: Patient is a 30-year-old female. Here for evaluation of several months of abnormal vaginal bleeding. She states that the course of her cycle she will have several days of bleeding and then not bleed for couple days and then have heavy bleeding again. She will then go over month without bleeding. This is been consistent for the past couple weeks. No vomiting. No fevers. She uses the NuvaRing as a control method has been using this for the past couple years. She has an appoint with her primary doctor next week. She is also having diarrhea. Related Data Previous Rx's Medication Instructions Recorded sertraline 50 mg tablet 50 mg PO DAILY #30 tab 01/23/20 etonogestrel 0.12 mg-ethinyl 1 vag ring VAG Q4W #3 each 03/08/20 estradiol 0.015 mg/24 hr vaginal ring (NuvaRing) levonorgestrel 1.5 mg tablet (Plan 1.5 mg PO ONCE #1 tab 07/15/20 B One-Step) Allergies Allergy/AdvReac Type Severity Reaction Status Date / Time No Known Allergies Allergy Unknown Verified 01/23/20 09:22 [NO KNOWN ALLERGIES] Review of Systems Constitutional Constitutional: Reports system reviewed and no additional complaints, except as documented Cardiovascular Cardiovascular: Reports system reviewed and no additional complaints, except as documented Respiratory Respiratory: Reports system reviewed and no additional complaints, except as documented Gastrointestinal Gastrointestinal: Reports as per HPI and Reports system reviewed and no additional complaints, except as documented Genitourinary Genitourinary: Reports system reviewed and no additional complaints, except as documented and Reports as per HPI Integumentary/Breasts Skin/Breast: Reports system reviewed and no additional complaints, except as documented Hematologic/Lymphatic On Anticoagulants: No Patient History Medical History (Updated 12/16/20 @ 17:01 by Daniel Ceron DO) Vaginal delivery Surgical History History of colposcopy (~2015) History of elective Social History marital status: unmarried,living together number of children: 2 occupational status: employed Smoking Status: Never smoker alcohol intake: never substance use type: does not use Smoking Status: Never smoker alcohol intake frequency: 0-2 drinks per day Substance Use Type: marijuana Exam Initial Vital Signs Initial Vital Signs: Vital Signs Temperature 98.2 F 12/16/20 14:29 Pulse Rate 95 H 12/16/20 14:29 Respiratory Rate 16 12/16/20 14:29 Blood Pressure 167/92 H 12/16/20 14:29 Pulse Oximetry 99 12/16/20 14:29 Const General: cooperative and comfortable HENMT Head: normal to inspection and normocephalic Resp Effort & Inspection: normal respiratory effort Cardio Rate: regular rate GI Inspection: normal to inspection Skin General: no rashes or lesions noted Neuro General: patient alert, patient awake and moves all extremities Extrem General: normal to inspection Psych Appearance: grossly normal and well kempt Course Orders Ordered: ED Orders 12/16/20 14:49 US pelvic complete Stat 12/16/20 14:57 Basic Metabolic Panel Stat Complete Blood Count AUTO DIFF Stat Test Serum,Qual Stat Vital Signs Vital signs: Vital Signs - 8 hr 12/16/20 14:29 Temperature 98.2 F Pulse Rate 95 H Respiratory Rate 16 Blood Pressure 167/92 H Pulse Oximetry 99 Medical Decision Making Lab Data Lab results reviewed: Yes I reviewed the patient's lab results. Result diagrams: 12/16/20 14:57 12/16/20 14:57 Labs: Lab Results 12/16/20 12/16/20 12/16/20 Range/Units 14:57 14:57 14:57 WBC 8.3 (4.5-11.0) X10^3/uL RBC 4.70 (4.0-5.2) X10^6/uL Hgb 13.6 (12.0-16.0) g/dL Hct 40.2 (36-46) % MCV 85.6 (80-100) fL MCH 29.0 (26-34) PG MCHC 33.8 (30-36) % RDW 12.7 (11.6-14.8) % Plt Count 287 (150-400) X10^3/uL Neut % (Auto) 64.2 (50-75) % Lymph % (Auto) 28.8 (25-40) % [place] % (Auto) 5.4 (3-14) % Eos % (Auto) 0.7 L (2-4) % Baso % (Auto) 0.9 (0-2) % Neut # (Auto) 5400 (2283-4204) /uL Lymph # (Auto) 2400 (3737-0979) /uL [place] # (Auto) 400 (0-900) /uL Eos # (Auto) 100 (0-450) /uL Baso # (Auto) 100 (0-100) /uL Sodium 139 (137-145) mmol/L Potassium 3.4 (3.4-5.1) mmol/L Chloride 102 (98-107) mmol/L Carbon Dioxide 27 (22-32) mmol/L BUN 10 (7-17) mg/dL Creatinine 0.81 (0.52-1.04) mg/dL Estimated GFR > 60.0 (>60) mL/min BUN/Creatinine Ratio 12.3 (6-22) Glucose 100 (70-100) mg/dL Calcium 9.4 (8.4-10.2) mg/dL Serum , Qual Negative (Negative) Imaging Data US - [employer]: Radiologist's Impression: Launch?[address] [address] Ultrasound Report Signed Patient: Amparo Phan MR#: [id number] : 1990 Acct:[id number] Age/Sex: 30 / F Date of Service: 12/16/20 Loc: ED Accession Number: [id number] ?? Procedure: US pelvic complete Ordering Provider: Daniel Ceron D.O. PROCEDURE:? US PELVIC COMPLETE ? INDICATIONS:? Abnormal vaginal bleeding ? TECHNIQUE:? Real-time scanning was performed of the pelvic organs, with image documentation.? Additional endovaginal scanning was necessary due to incomplete visualization of the adnexal and endometrial structures by transabdominal scanning.? ? COMPARISON:? None. ? FINDINGS:? ?? Uterus:? Heterogeneous echotexture, anteverted, and measures 9 x 4.4 x 6.3 cm ?The endometrium measures up to 10.7 mm in combined thickness.? ? Ovaries:? The right ovary measures 3.5 x 2.7 x 3.2 cm. A hypoechoic lesion is seen within the right ovary, measuring up to 2.3 cm, most consistent with a dominant follicle/cyst. ? The left ovary measures 2.8 x 1.7 x 1.6 cm. ? Other: ? No pathologic free abdominal or pelvic fluid. ? IMPRESSION:? Hypoechoic lesion in the right ovary as detailed above, most consistent with a dominant follicle/cyst. ? Dictated by: Christian Pires M.D. on 12/16/2020 at 16:05 ? ? Approved by: Christian Pires M.D. on 12/16/2020 at 16:07? MDM Narrative Medical decision making narrative: Patient's labs today are unremarkable. Ultrasound is unremarkable. She is not currently having any vaginal bleeding. She has an appoint with her primary doctor coming up in approximately 10 days. Informed her that there are things that can be done. We did discuss potentially changing her control method. Also discussed referrals to see explosive ordnance manager. I feel the patient can be safely discharged home without further workup here in the emergency department. She was given return precautions and follow-up instructions. She expressed understanding and agreement Discharge Plan Departure Patient Disposition: Home Clinical Impression: Abnormal vaginal bleeding Instructions: DI for Vaginal Bleeding Activity Restrictions/Additional Instructions: Continue to take all of your medications as directed. Keep all of your scheduled medical appointments. Return to the emergency department for any new or worsening symptoms Prescriptions: No Action NuvaRing 0.12-0.015 mg/24 hr ring 1 vag ring VAG Q4W Qty: 3 RF: 2 sertraline 50 mg tablet 50 mg PO DAILY Qty: 30 RF: 1 levonorgestrel [Plan B One-Step] 1.5 mg tablet 1.5 mg PO ONCE Qty: 1 RF: 0 Referrals: Caroline Noble DO [Primary Care Provider] -
--- NOTE | 2020-12-16 14:49 | DI.US.S_ITS ---
PROCEDURE: US PELVIC COMPLETE INDICATIONS: Abnormal vaginal bleeding TECHNIQUE: Real-time scanning was performed of the pelvic organs, with image documentation. Additional endovaginal scanning was necessary due to incomplete visualization of the adnexal and endometrial structures by transabdominal scanning. COMPARISON: None. FINDINGS: Uterus: Heterogeneous echotexture, anteverted, and measures 9 x 4.4 x 6.3 cm The endometrium measures up to 10.7 mm in combined thickness. Ovaries: The right ovary measures 3.5 x 2.7 x 3.2 cm. A hypoechoic lesion is seen within the right ovary, measuring up to 2.3 cm, most consistent with a dominant follicle/cyst. The left ovary measures 2.8 x 1.7 x 1.6 cm. Other: No pathologic free abdominal or pelvic fluid. IMPRESSION: Hypoechoic lesion in the right ovary as detailed above, most consistent with a dominant follicle/cyst. Dictated by: Christian Pires M.D. on 12/16/2020 at 16:05 Approved by: Christian Pires M.D. on 12/16/2020 at 16:07
[2020-12-16 15:05] LABS: Add Manual Diff / Slide Review NO; Basophils Absolute Auto 100 /uL (0-100); Basophils Percent Auto 0.9 % (0-2); Eosinophils Absolute Auto 100 /uL (0-450); Eosinophils Percent Auto 0.7 % (2-4); Hematocrit 40.2 % (36-46); Hemoglobin 13.6 g/dL (12.0-16.0); Lymphocytes Absolute Auto 2400 /uL (1100-4500); Lymphocytes Percent Auto 28.8 % (25-40); Mean Corpuscular HGB Conc 33.8 % (30-36); Mean Corpuscular Volume 85.6 fL (80-100); Monocytes Absolute Auto 400 /uL (0-900); Monocytes Percent Auto 5.4 % (3-14); Neutrophils Absolute Auto 5400 /uL (1500-7000); Neutrophils Percent Auto 64.2 % (50-75); Platelet Count 287 X10^3/uL (150-400); Red Cell Distribution Width 12.7 % (11.6-14.8); White Blood Cell Count 8.3 X10^3/uL (4.5-11.0)
[2020-12-16 15:18] LABS: BUN Creatinine Ratio 12.3 (6-22); Blood Urea Nitrogen 10 mg/dL (7-17); Calcium 9.4 mg/dL (8.4-10.2); Carbon Dioxide 27 mmol/L (22-32); Chloride 102 mmol/L (98-107); Estimated Glomerular Filt Rate > 60.0 mL/min (>60); Glucose 100 mg/dL (70-100); HEMOLYSIS < 15 (0-50); Potassium 3.4 mmol/L (3.4-5.1); Sodium 139 mmol/L (137-145)
[2020-12-16 15:39] LABS: Pregnancy Test Serum,Qual Negative (Negative)
== END 2020-12-16 17:07 | disposition home or self-care (01) ==
PROVIDERS: Emergency Provider Emergency Medicine; PCP Family Medicine
DX: N93.9 Abnormal uterine and vaginal bleeding, unspecified (principal); R19.7 Diarrhea, unspecified
CPT/HCPCS: 36415; 76830; 76856; 80048; 84703; 85025; 99281; 99284

== ENCOUNTER 2021-07-18 00:01 | Emergency (ER) | payer OTHER, MEDICAID, SELFPAY ==
[2021-07-18 00:11] VITALS: BP 153/85; PULSE 72; RESP 18; TEMP 36.9; O2SAT 99; BMI 36.0
--- NOTE | 2021-07-18 00:50 | ED_ITS ---
HPI - General Chief complaint: Abdominal Pain Stated complaint: possible miscarriage found out preg last week Time Seen by Provider: 07/18/21 00:42 Source: patient Mode of arrival: Ambulatory History of Present Illness HPI Narrative: 31-year-old female nonsmoker with out significant medical history he is a with unknown last menstrual cycle that tested positive for recently and presents with a chief complaint of a large amount of vaginal bleeding and cramping over the course of the day. She states that earlier she had a large amount of bleeding and may be the passage of some clots, she states she continues to bleed but at a much slower rate. She is not dizzy nor weak or lightheaded. She denies any fever or chills. She has no chest pain or shortness of breath. She is nauseated but denies vomiting. She has no dysuria, frequency or urgency. Related Data Previous Rx's Medication Instructions Recorded sertraline 50 mg tablet 50 mg PO DAILY #30 tab 01/23/20 levonorgestrel 1.5 mg tablet (Plan 1.5 mg PO ONCE #1 tab 12/24/20 B One-Step) sulfamethoxazole 800 1 tab PO BID #14 tab 01/03/21 mg-trimethoprim 160 mg tablet (Bactrim DS) etonogestrel 0.12 mg-ethinyl 1 vag ring VAG Q4W #3 each 06/07/21 estradiol 0.015 mg/24 hr vaginal ring (NuvaRing) Allergies Allergy/AdvReac Type Severity Reaction Status Date / Time No Known Allergies Allergy Unknown Verified 07/18/21 16:58 [NO KNOWN ALLERGIES] Review of Systems Review of Systems Narrative: GENERAL: Denies chills, fatigue, malaise, fever, sweats. HEENT: Denies sinus pain, ear pain, sore throat, difficulty swallowing, dizzines s. RESPIRATORY: Denies dyspnea, cough, wheezing, hemoptysis, sputum. CARDIOVASCULAR: Denies chest pain, palpitations, orthopnea, edema, GASTROINTESTINAL: Denies nausea, vomiting, abdominal pain, diarrhea, constipation, melena. : see HPI MUSCULOSKELETAL: denies weakness, joint pain, or bony pain SKIN: Denies rash, skin lesions, or other NEUROLOGIC: Denies weakness, headache, numbness, change in speech, confusion, seizures, incoordination. PSYCHIATRIC: No concerning psychosocial issues. 12 point review of systems is negative except for those stated above Exam Narrative Exam Narrative: GENERAL: [31] year old patient appears stated age. Well-developed patient, in mild distress. HEAD: Atraumatic. Normocephalic. EYES: Pupils equal round and reactive. Extraocular motions intact. No scleral icterus. No injection or drainage. ENT: Nose without bleeding, purulent drainage. Throat without erythema, tonsillar hypertrophy or exudate. Airway patent. NECK: Trachea midline. Non tender CARDIOVASCULAR: Regular rate and rhythm without murmurs, gallops, or rubs. RESPIRATORY: Clear to auscultation. Breath sounds equal bilaterally. No wheezes, rales, or rhonchi. GASTROINTESTINAL: Abdomen soft, non-tender, nondistended. EXTREMITIES: No edema or joint tenderness. BACK: Nontender without deformity or crepitance. No flank tenderness. NEURO: AOx3. SKIN: No rash or erythema of visible areas Initial Vital Signs Initial Vital Signs: Vital Signs Temperature 98.4 F 07/18/21 00:11 Pulse Rate 72 07/18/21 00:11 Respiratory Rate 18 07/18/21 00:11 Blood Pressure 153/85 H 07/18/21 00:11 Pulse Oximetry 99 07/18/21 00:11 Course Orders Ordered: ED Orders 07/18/21 00:38 ABO RH Type Stat Complete Blood Count AUTO DIFF Stat Comprehensive Metabolic Panel Stat HCG Quantitative /Beta subunit Stat 07/18/21 01:01 OB <= 14 weeks fetus Stat Vital Signs Vital signs: Vital Signs - 8 hr 07/18/21 00:11 Temperature 98.4 F Pulse Rate 72 Respiratory Rate 18 Blood Pressure 153/85 H Pulse Oximetry 99 MDM - OB/Uterine Contractions Lab Data Result diagrams: 07/18/21 00:38 07/18/21 00:38 Labs: Lab Results 07/18/21 07/18/21 07/18/21 Range/Units 00:38 00:38 00:38 WBC 9.6 (4.5-11.0) X10^3/uL RBC 4.11 (4.0-5.2) X10^6/uL Hgb 12.3 (12.0-16.0) g/dL Hct 35.7 L (36-46) % MCV 86.7 (80-100) fL MCH 29.9 (26-34) PG MCHC 34.5 (30-36) % RDW 12.9 (11.6-14.8) % Plt Count 273 (150-400) X10^3/uL Neut % (Auto) 58.5 (50-75) % Lymph % (Auto) 31.7 (25-40) % [place] % (Auto) 7.1 (3-14) % Eos % (Auto) 1.7 L (2-4) % Baso % (Auto) 1.0 (0-2) % Neut # (Auto) 5600 (0256-7564) /uL Lymph # (Auto) 3000 (6615-4558) /uL [place] # (Auto) 700 (0-900) /uL Eos # (Auto) 200 (0-450) /uL Baso # (Auto) 100 (0-100) /uL Sodium 139 (137-145) mmol/L Potassium 3.3 L (3.4-5.1) mmol/L Chloride 108 H (98-107) mmol/L Carbon Dioxide 23 (22-32) mmol/L BUN 11 (7-17) mg/dL Creatinine 0.69 (0.52-1.04) mg/dL Estimated GFR > 60 (>60) mL/min BUN/Creatinine Ratio 15.9 (6-22) Glucose 99 (70-100) mg/dL Calcium 9.1 (8.4-10.2) mg/dL Total Bilirubin 0.5 (0.2-1.3) mg/dL AST 29 (14-36) IU/L ALT 19 (<35) IU/L Alkaline Phosphatase 82 (38-126) U/L Total Protein 7.7 (6.3-8.2) g/dL Albumin 4.5 (3.5-5.0) g/dL Globulin 3.2 (1.7-4.1) g/dL Albumin/Globulin Ratio 1.4 (1.0-2.8) HCG, Quant 757.5 mIU/mL Blood Type O Positive Imaging Data US - OB: Radiologist's Impression: [address] [address] Ultrasound Report Signed Patient: Amparo Phan MR#: [id number] : 1990 Acct:[id number] Age/Sex: 31 / F Date of Service: 07/18/21 Loc: Accession Number: [id number] ?? Procedure: US OB <= 14 weeks fetus Ordering Provider: Misbah Lawrence D.O. PROCEDURE:? US OB <= 14 WEEKS FETUS ? INDICATIONS:? BLEEDING, PAIN ? OUTSIDE/PRIOR DATING DATA:? Last menstrual period (LMP):? Unknown.? First dating scan (date and location):? 07/18/2021.? Estimated date of delivery (JOI) from first dating scan:? 03/10/2022. ? TECHNIQUE:? Real-time scanning was performed of the fetus and maternal pelvic organs, with image documentation.? Endovaginal scanning was also performed to better visualize the fetus and maternal ovaries.? ? COMPARISON:? [facility], PELVIC COMPLETE, 12/16/2020, 15:09.? [facility], OB <= 14 WEEKS FETUS, 08/14/2017, 15:56. ? FINDINGS:? ? Embryo:? There is a cystic structure within the uterus suggestive of a gestational sac.? This demonstrates a mean sac diameter of 1.6 cm corresponding to a calculated gestational age of 6 weeks 3 days.? No discrete yolk sac or pole identified. ? Maternal organs:? The right ovary was not discretely visualized.? The left ovary appears within normal size limits.? No definite adnexal masses identified. ? ? IMPRESSION:? ? 1. Probable gestational sac demonstrated in the uterus with a mean sac diameter corresponding to a calculated gestational age of 6 weeks 3 days.? No pole or yolk sac identified.? The findings are suggestive of but not diagnostic for early failure.? Recommend continued clinical follow-up and a short-term repeat ultrasound if indicated.? ? We strive to produce accurate, complete, and clear reports of imaging services. To assist us in improving patient care, this report was composed using standard report templates and voice recognition software. Therefore, it may contain abnormal punctuation, insertions and/or omissions. Occasional wrong-word or sound-alike substitutions may occur. Though we review the report and make efforts to correct it, we do recommend that the report be read carefully in proper context to recognize any text i naccuracies. ? ? ? Dictated by: Will Thomason M.D. on 07/18/2021 at 2:47 ? ? Approved by: Will Thomason M.D. on 07/18/2021 at 2:52 ? MDM Narrative Medical decision making narrative: Patient presents for evaluation of pelvic cramping significant vaginal bleeding earlier with passage of clots and possible tissue, significant improvement in department. She is hemodynamically stable, O positive, ultrasound suggest is of blighted ovum. Scenario would suggest against a threatened or incomplete , currently labs and clinical picture very reassuring and there is no indication for hospitalization or need for intervention. She is given extensive return precautions, encouraged to follow closely with OB or Dr. Noble and questions answered to her apparent satisfaction Discharge Plan Departure Patient Disposition: Home Clinical Impression: Threatened Instructions: DI for Threatened Activity Restrictions/Additional Instructions: *You have been diagnosed with [vaginal bleeding and cramping likely a consequence of threatened miscarriage *What to do: *Please continue to take your regular medications as directed. [ ] New medication prescriptions sent to your pharmacy: [ ] [ ] New medication written as a paper prescription [x] No new medications given *Please follow up with Dr. Castellanos ([facility]) in 2-3 days, call for an appointment. Let them know you were seen in the Emergency Department and that we ask that you be seen in follow up. We will electronically transmit a record of today's note *Return to Emergency Department if you should have any new, worsening or concerning symptoms, such as [fever greater than 101 F, shaking chills, worsening pain, persistent vomiting or other bothersome symptoms] Prescriptions: No Action sertraline 50 mg tablet 50 mg PO DAILY Qty: 30 1RF sulfamethoxazole-trimethoprim [Bactrim DS] 800-160 mg tablet 1 tab PO BID Qty: 14 0RF levonorgestrel [Plan B One-Step] 1.5 mg tablet 1.5 mg PO ONCE Qty: 1 0RF Rx Instructions: as a single dose etonogestrel-ethinyl estradiol [NuvaRing] 0.12-0.015 mg/24 hr ring 1 vag ring VAG Q4W Qty: 3 3RF Rx Instructions: leave in place for 3 weeks of a 4-week cycle Referrals: Sarah Castellanos MD [Physician] - Caroline Noble DO [Primary Care Provider] - Visit Report Forms: Patient Portal/API
[2021-07-18 01:00] LABS: Add Manual Diff / Slide Review NO; Basophils Absolute Auto 100 /uL (0-100); Eosinophils Absolute Auto 200 /uL (0-450); Eosinophils Percent Auto 1.7 % (2-4); Hematocrit 35.7 % (36-46); Hemoglobin 12.3 g/dL (12.0-16.0); Lymphocytes Absolute Auto 3000 /uL (1100-4500); Lymphocytes Percent Auto 31.7 % (25-40); Mean Corpuscular HGB Conc 34.5 % (30-36); Mean Corpuscular Hemoglobin 29.9 PG (26-34); Mean Corpuscular Volume 86.7 fL (80-100); Monocytes Absolute Auto 700 /uL (0-900); Monocytes Percent Auto 7.1 % (3-14); Neutrophils Absolute Auto 5600 /uL (1500-7000); Neutrophils Percent Auto 58.5 % (50-75); Platelet Count 273 X10^3/uL (150-400); Red Blood Cell Count 4.11 X10^6/uL (4.0-5.2); Red Cell Distribution Width 12.9 % (11.6-14.8); White Blood Cell Count 9.6 X10^3/uL (4.5-11.0)
--- NOTE | 2021-07-18 01:01 | DI.US.S_ITS ---
PROCEDURE: US OB <= 14 WEEKS FETUS INDICATIONS: BLEEDING, PAIN OUTSIDE/PRIOR DATING DATA: Last menstrual period (LMP): Unknown. First dating scan (date and location): 07/18/2021. Estimated date of delivery (JOI) from first dating scan: 03/10/2022. TECHNIQUE: Real-time scanning was performed of the fetus and maternal pelvic organs, with image documentation. Endovaginal scanning was also performed to better visualize the fetus and maternal ovaries. COMPARISON: [facility], , US PELVIC COMPLETE, 12/16/2020, 15:09. [facility], , US OB <= 14 WEEKS FETUS, 08/14/2017, 15:56. FINDINGS: Embryo: There is a cystic structure within the uterus suggestive of a gestational sac. This demonstrates a mean sac diameter of 1.6 cm corresponding to a calculated gestational age of 6 weeks 3 days. No discrete yolk sac or pole identified. Maternal organs: The right ovary was not discretely visualized. The left ovary appears within normal size limits. No definite adnexal masses identified. IMPRESSION: 1. Probable gestational sac demonstrated in the uterus with a mean sac diameter corresponding to a calculated gestational age of 6 weeks 3 days. No pole or yolk sac identified. The findings are suggestive of but not diagnostic for early failure. Recommend continued clinical follow-up and a short-term repeat ultrasound if indicated. We strive to produce accurate, complete, and clear reports of imaging services. To assist us in improving patient care, this report was composed using standard report templates and voice recognition software. Therefore, it may contain abnormal punctuation, insertions and/or omissions. Occasional wrong-word or sound-alike substitutions may occur. Though we review the report and make efforts to correct it, we do recommend that the report be read carefully in proper context to recognize any text inaccuracies. Dictated by: Will Thomason M.D. on 07/18/2021 at 2:47 Approved by: Will Thomason M.D. on 07/18/2021 at 2:52
[2021-07-18 01:27] LABS: Alanine Aminotransferase 19 IU/L (<35); Albumin 4.5 g/dL (3.5-5.0); Albumin Globulin Ratio 1.4 (1.0-2.8); Alkaline Phosphatase 82 U/L (38-126); Aspartate Aminotransferase 29 IU/L (14-36); BUN Creatinine Ratio 15.9 (6-22); Bilirubin Total 0.5 mg/dL (0.2-1.3); Blood Urea Nitrogen 11 mg/dL (7-17); Calcium 9.1 mg/dL (8.4-10.2); Carbon Dioxide 23 mmol/L (22-32); Chloride 108 mmol/L (98-107); Estimated Glomerular Filt Rate > 60 mL/min (>60); Globulin 3.2 g/dL (1.7-4.1); Glucose 99 mg/dL (70-100); HEMOLYSIS < 15 (0-50); Potassium 3.3 mmol/L (3.4-5.1); Sodium 139 mmol/L (137-145); Total Protein 7.7 g/dL (6.3-8.2)
[2021-07-18 01:44] LABS: HCG Quantitative /Beta subunit 757.5 mIU/mL
== END 2021-07-18 02:05 | disposition home or self-care (01) ==
PROVIDERS: Emergency Provider Emergency Medicine; PCP Family Medicine
DX: O20.0 Threatened abortion (principal); Z3A.01 Less than 8 weeks gestation of pregnancy; N93.9 Abnormal uterine and vaginal bleeding, unspecified
CPT/HCPCS: 36415; 76801; 76817; 80053; 84702; 85025; 86900; 86901; 99283

== ENCOUNTER 2021-07-18 16:09 | Emergency (ER) | payer OTHER, MEDICAID, SELFPAY ==
[2021-07-18 16:55] VITALS: BP 136/84; PULSE 66; RESP 18; TEMP 36.6; O2SAT 100; BMI 36.0
[2021-07-18 17:19] LABS: Add Manual Diff / Slide Review NO; Basophils Absolute Auto 100 /uL (0-100); Basophils Percent Auto 0.6 % (0-2); Eosinophils Absolute Auto 100 /uL (0-450); Eosinophils Percent Auto 1.1 % (2-4); Hematocrit 34.1 % (36-46); Lymphocytes Absolute Auto 2300 /uL (1100-4500); Mean Corpuscular HGB Conc 35.2 % (30-36); Mean Corpuscular Hemoglobin 30.6 PG (26-34); Mean Corpuscular Volume 86.8 fL (80-100); Monocytes Absolute Auto 600 /uL (0-900); Monocytes Percent Auto 6.3 % (3-14); Neutrophils Absolute Auto 6100 /uL (1500-7000); Platelet Count 260 X10^3/uL (150-400); Red Blood Cell Count 3.93 X10^6/uL (4.0-5.2); Red Cell Distribution Width 12.9 % (11.6-14.8); White Blood Cell Count 9.2 X10^3/uL (4.5-11.0)
== END 2021-07-18 20:20 | disposition left against medical advice (07) ==
PROVIDERS: Emergency Medicine; Emergency Provider Emergency Medicine; PCP Family Medicine
DX: N93.9 Abnormal uterine and vaginal bleeding, unspecified (principal)
CPT/HCPCS: 36415; 85025; 99281

== ENCOUNTER → 2023-03-15 11:01 | Outpatient (CLI) | payer OTHER, MEDICAID, SELFPAY ==
[2023-03-15 12:07] LABS: Add Manual Diff / Slide Review NO; Basophils Absolute Auto 100 /uL (0-100); Basophils Percent Auto 0.7 % (0-2); Eosinophils Absolute Auto 100 /uL (0-450); Eosinophils Percent Auto 0.9 % (2-4); Hematocrit 37.2 % (36-46); Hemoglobin 12.5 g/dL (12.0-16.0); Lymphocytes Absolute Auto 3200 /uL (1100-4500); Mean Corpuscular HGB Conc 33.6 % (30-36); Mean Corpuscular Hemoglobin 28.7 PG (26-34); Mean Corpuscular Volume 85.6 fL (80-100); Monocytes Absolute Auto 600 /uL (0-900); Monocytes Percent Auto 5.8 % (3-14); Neutrophils Absolute Auto 7000 /uL (1500-7000); Neutrophils Percent Auto 63.6 % (50-75); Platelet Count 352 X10^3/uL (150-400); Red Blood Cell Count 4.35 X10^6/uL (4.0-5.2); Red Cell Distribution Width 14.2 % (11.6-14.8)
[2023-03-15 12:24] LABS: Alanine Aminotransferase 25 IU/L (<35); Albumin 4.1 g/dL (3.5-5.0); Albumin Globulin Ratio 1.2 (1.0-2.8); Alkaline Phosphatase 93 U/L (38-126); Aspartate Aminotransferase 30 IU/L (14-36); BUN Creatinine Ratio 16.7 (6-22); Bilirubin Total 0.6 mg/dL (0.2-1.3); Blood Urea Nitrogen 12 mg/dL (7-17); Calcium 9.7 mg/dL (8.4-10.2); Carbon Dioxide 23 mmol/L (22-32); Chloride 103 mmol/L (98-107); Cholesterol 168 mg/dL (140-199); Estimated Glomerular Filt Rate > 60 mL/min (>60); Globulin 3.3 g/dL (1.7-4.1); Glucose 88 mg/dL (70-100); HDL Cholesterol 56 mg/dL (40-60); HEMOLYSIS < 15 (0-50); LDL Cholesterol Calculated 53 mg/dL (<100); Potassium 4.2 mmol/L (3.4-5.1); Sodium 135 mmol/L (137-145); Total Protein 7.4 g/dL (6.3-8.2); Triglycerides 294 mg/dL (35-150)
[2023-03-15 12:39] LABS: Hemoglobin A1C% w Est Avg Glu 5.7 % (4.0-6.0)
[2023-03-15 12:49] LABS: TSH w/ Reflex to FT4 1.02 uIU/mL (0.47-4.68)
== END ==
PROVIDERS: PCP Family Medicine; Referring Provider Family Medicine; Visit Provider Family Medicine
DX: E66.9 Obesity, unspecified (principal)
CPT/HCPCS: 36415; 80053; 80061; 83036; 84443; 85025

== ENCOUNTER → 2023-09-20 16:30 | Outpatient (CLI) | payer OTHER, MEDICAID, SELFPAY | PROVIDERS: PCP Family Medicine; Visit Provider Family Medicine | DX: Z72.51 High risk heterosexual behavior (principal) | CPT/HCPCS: 87210 ==

== ENCOUNTER 2024-01-17 18:48 | Emergency (ER) | payer OTHER, MEDICAID, SELFPAY ==
[2024-01-17 19:03] VITALS: BP 142/86; PULSE 88; RESP 16; TEMP 37.1; O2SAT 99; BMI 32.5
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
[2024-01-17 20:24] VITALS: BP 145/92; PULSE 85; RESP 14; O2SAT 100
== END 2024-01-17 20:26 | disposition home or self-care (01) ==
PROVIDERS: Emergency Provider Emergency Medicine; PCP Family Medicine
DX: R68.84 Jaw pain (principal); Y04.2XXA Assault by strike against or bumped into by another person, initial encounter
CPT/HCPCS: 70486; 99281; 99284

== ENCOUNTER 2024-03-03 12:52 | Day surgery (SDC) | payer OTHER, SELFPAY ==
[2024-03-03 13:20] VITALS: BP 109/64; PULSE 105; RESP 14; TEMP 36.7; O2SAT 97
[2024-03-03] MEDS: SODIUM CHLORIDE 0.9% 1,000 ML 150 ML IV (13:27)
--- NOTE | 2024-03-03 13:53 | PM.PREOP ---
Pre-operative Note COVID-19 COVID-19 status: Not tested Interval Note History & Physical reviewed/Exam performed by Physician: Yes Changes to H&P: No
--- NOTE | 2024-03-03 14:20 | P.OP.COLON_ITS ---
Operative Date/Time/Diagnoses Date of procedure: 03/03/24 Time of procedure: 14:20 Pre-op diagnosis: Colon screening, blood per rectum, internal hemorrhoids with prolapse and bleeding Post-op diagnosis: same Procedure & Clinicians Study performed: Colonoscopy, anoscopy with rubber-band ligation of internal hemorrhoids x2, left middle and right posterior bundles Same procedure as scheduled: Yes Indications: Bleeding hemorrhoids, blood per rectum Surgeon: Ian Riddle Procedure Notes SCOAP/Timeout: Performed Procedure in detail: Time-out was performed. Mac was induced. Patient was placed in left lateral decubitus position. The perineum was inspected without any gross abnormality. Lubricated pediatric colonoscope was inserted and advanced to the cecum. The terminal ileum was intubated. The colonoscope was withdrawn slowly inspecting the circumference of the colon. Very small polyps may have been missed, prep quality was adequate. Retroflexed view of the rectum showed medium-sized prolapsed not actively bleeding internal hemorrhoids. The scope was withdrawn. Lubricated anoscope was inserted. Suctioned senior agricultural assistant was applied to the 2 most prominent hemorrhoids, 1 being the right posterior bundle another being the left middle bundle. Two bands were applied to each of these hemorrhoids. The anoscope was removed. The patient was taken to PACU in good condition. Scope withdrawal time: 6 Sedation minutes: 10 Findings: internal hemorrhoids Specimen(s): none sent Complications: none Post-procedure Recommendations: Colonoscopy in 10 years and High fiber diet Follow up: as needed Disposition: PACU
[2024-03-03 14:25] VITALS: BP 83/25; PULSE 80; RESP 17; TEMP 36.2; O2SAT 96
[2024-03-03 14:28] VITALS: BP 94/55; PULSE 99; RESP 15; O2SAT 97
[2024-03-03 14:33] VITALS: BP 110/50; PULSE 79; RESP 13; O2SAT 96
[2024-03-03 14:38] VITALS: BP 99/63; PULSE 80; RESP 17; TEMP 36.2; O2SAT 98
== END 2024-03-03 14:47 | disposition home or self-care (01) ==
PROVIDERS: PCP Family Medicine; Referring Provider Surgery; Visit Provider Surgery
PROC: 0DJD8ZZ Inspection of Lower Intestinal Tract, Via Natural or Artificial Opening Endoscopic (ICD-10-PCS; CPT 45378; principal; 2024-03-03 14:00)
DX: K62.5 Hemorrhage of anus and rectum (principal); K64.8 Other hemorrhoids; G47.33 Obstructive sleep apnea (adult) (pediatric); I10 Essential (primary) hypertension; K21.9 Gastro-esophageal reflux disease without esophagitis; E66.9 Obesity, unspecified
CPT/HCPCS: 45398; 81025; J2704

== ENCOUNTER → 2024-05-15 18:29 | Outpatient (CLI) | payer SELFPAY | LOC: LAB 18:30 | PROVIDERS: PCP Family Medicine; Visit Provider Nurse Practitioner Family | DX: R35.0 Frequency of micturition (principal) | CPT/HCPCS: 87077; 87086 ==